=== PATIENT | female | born 1950 | race Caucasian/White ===

== ENCOUNTER → 2016-09-05 | Outpatient (CLI) | payer OTHER | LOC: BHCLAF 11:00 | PROVIDERS: ATTEND Internal Medicine Cardiovascular Disease | DX: I50.30 Unspecified diastolic (congestive) heart failure (principal); I10 Essential (primary) hypertension; R78.5 Finding of other psychotropic drug in blood; G47.33 Obstructive sleep apnea (adult) (pediatric) | CPT/HCPCS: 80048-PO; 83880-PO; 93005-PO ==

== ENCOUNTER → 2016-09-13 | Outpatient (CLI) | payer OTHER | LOC: BHFA 11:00 | PROVIDERS: ATTEND Internal Medicine Interventional Cardiology | DX: I50.30 Unspecified diastolic (congestive) heart failure (principal) ==

== ENCOUNTER → 2016-12-26 | Outpatient (CLI) | payer OTHER | LOC: SBRMNEURO 20:00 | PROVIDERS: ATTEND Physician Assistant Medical | DX: G47.33 Obstructive sleep apnea (adult) (pediatric) (principal) ==

== ENCOUNTER → 2016-12-27 | Outpatient (CLI) | payer OTHER | LOC: CIMAGING 11:35 | PROVIDERS: ATTEND Family Medicine | DX: M54.5 Low back pain (principal); Z98.1 Arthrodesis status | CPT/HCPCS: 72100-PO ==

== ENCOUNTER → 2017-05-21 | Outpatient (CLI) | payer OTHER, MEDICARE | LOC: CIMAGING 13:12 | PROVIDERS: ATTEND Family Medicine | DX: R05 Cough (principal); R91.8 Other nonspecific abnormal finding of lung field | CPT/HCPCS: 71046-PO ==

== ENCOUNTER → 2017-12-31 | Outpatient (CLI) | payer OTHER, MEDICARE | LOC: FIMAGING 15:34 | PROVIDERS: ATTEND Family Medicine | DX: M51.16 Intervertebral disc disorders with radiculopathy, lumbar region (principal); R19.7 Diarrhea, unspecified ==

== ENCOUNTER → 2018-06-25 | Outpatient (CLI) | payer OTHER, MEDICARE | LOC: CIMAGING 12:33 | PROVIDERS: ATTEND Family Medicine | DX: Z12.31 Encounter for screening mammogram for malignant neoplasm of breast (principal) ==